=== PATIENT | male | born 1990 | race Caucasian/White ===

== ENCOUNTER 2016-10-28 12:48 | Emergency (ER) | payer SELFPAY ==
[~2016-10-28 12:48] MED LIST: DERMACORT1 GM EXT; MEDROL DOSEPAK4 MG PO; MOBIC PO; ROBAXIN500 MG PO
[2016-10-30] MEDS ORDERED: BACTRIM DS TABL1 TA2 PO (11:45)
[2016-10-30] MEDS ORDERED: MOTRIN600 M1 PO (11:46)
== END 2016-10-28 12:50 | disposition home or self-care (01) ==
LOC: SED 12:48
DX: L03.114 Cellulitis of left upper limb (principal); F17.210 Nicotine dependence, cigarettes, uncomplicated
CPT/HCPCS: 99282

== ENCOUNTER 2016-10-30 11:57 | Emergency (ER) | payer SELFPAY ==
[~2016-10-30 11:57] MED LIST changes: +BACTRIM DS TABL1 TA2 PO; +MOTRIN600 M1 PO
== END 2016-10-30 12:17 | disposition home or self-care (01) ==
LOC: SED 11:57
DX: L03.114 Cellulitis of left upper limb (principal); F17.200 Nicotine dependence, unspecified, uncomplicated; Z79.899 Other long term (current) drug therapy
CPT/HCPCS: 99282

== ENCOUNTER 2016-10-31 10:53 | Emergency (ER) | payer SELFPAY | END 2016-10-31 12:10 | disposition home or self-care (01) | LOC: SED 10:53 | DX: L03.113 Cellulitis of right upper limb (principal); F17.210 Nicotine dependence, cigarettes, uncomplicated; Z79.899 Other long term (current) drug therapy | CPT/HCPCS: 96372; 99283; J1885 ==

== ENCOUNTER 2016-11-02 16:37 | Emergency (ER) | payer SELFPAY ==
--- NOTE | ~2016-11-02 | CR93 ---
[facility]. [facility] A Service of [facility] & [facility] RADIOLOGY TEXT RESULTS PATIENT: THANG MEAD LOCATION: SED : [birth year] UNIT #: [id number] AGE: [address]: ARNOLD PRIETO SEX: M ORDER DR: [id number] [place] [id number] E MR#: [id number] Acc #: [id number] NAME: THANG MEAD : 1990 SEX: M STUDY DATE/TIME: 11/02/2016 17:45 UNIT: SED ROOM: STUDY DESCRIPTION: CR Elbow Min 3 Views Lt Attending Physician: Arnold Prieto Ordering Physician: Staff Doctor Not On Primary Care Physician: No Primary Care Physician MEDICAL IMAGING REPORT This report is preliminary unless electronic signature is present. EXAM Left elbow 3 views HISTORY 26-year-old male elbow infection with drainage swelling and pain for 7 days. FINDINGS 3 views of the left elbow demonstrate no fracture dislocation. Soft tissue swelling noted along the posterior elbow but no soft tissue gas or radiopaque foreign body. No periostitis. IMPRESSION Soft tissue swelling along the posterior elbow. No radiopaque foreign body. No underlying osseous abnormality. Dictated by... Lila Gamble M.D. THIS IS AN ELECTRONICALLY VERIFIED REPORT Lila Gamble M.D. at 11/03/2016 8:09 PM OTIS/daniel TD: 11/03/2016 02:21 JOB #: [id number] MEDICAL IMAGING REPORT Page 1 of 1
[2016-11-02 17:05] LABS: BASOPHIL% 0.3 % (0-2.5); DIFF IND NO; EOSINOPHIL# 0.1 X10e3 (0-0.7); EOSINOPHIL% 1.4 % (0.0-7.0); HEMATOCRIT 41.7 % (38.0-50.0); HEMOGLOBIN 13.7 gm/dL (13.0-16.0); LYMPHOCYTE# 0.9 X10e3 (1.0-3.5); LYMPHOCYTE% 10.5 % (17.0-45.0); MEAN CELL VOLUME 91.7 FL (83-96); MEAN CORPUSCULAR HEMOGLOBIN 30.1 PG (28-34); MEAN CORPUSCULAR HGB CONC 32.8 g/dL (30-36); MEAN PLATELET VOLUME 8.1 FL (6.5-11.5); MONOCYTE# 1.1 X10e3 (0-1.0); MONOCYTE% 12.7 % (3.0-12.0); NEUTROPHIL# 6.3 X10e3 (1.5-7.1); NEUTROPHIL% 75.1 % (40-75); PLATELET COUNT 202 X10e3 (140-420); RED BLOOD COUNT 4.54 X10e (3.90-5.60); RED CELL DISTRIBUTION WIDTH 13.5 % (11.0-15.5); WHITE BLOOD COUNT 8.4 X10e3 (4.0-10.5)
[2016-11-02 17:05] LABS: URINE APPEARANCE CLEAR; URINE BILIRUBIN NEG (NEG); URINE COLOR YELLOW; URINE GLUCOSE NEG (NORM); URINE KETONE NEG (NEG); URINE LEUKOCYTE ESTERASE NEG (NEG); URINE NITRATE NEG (NEG); URINE PROTEIN NEG (NEG); URINE SOURCE CLEAN CATCH; URINE SPECIFIC GRAVITY <=1.005 (1.003-1.035); URINE UROBILINOGEN 0.2 MG/DL (NORM)
[2016-11-02 17:06] LABS: MICRO INDICATED? NO; URINE BLOOD NEG (NEG)
[2016-11-02 17:37] LABS: BUN/CREATININE RATIO 11.87; CALCIUM SERUM 9.2 mg/dL (8.4-10.2); CREATININE SERUM 1.6 mg/dL (0.6-1.4); POTASSIUM 4.3 mmol/L (3.5-5.1)
== END 2016-11-02 19:04 | disposition home or self-care (01) ==
LOC: SED 16:37
PROVIDERS: Physician Assistant
DX: L03.114 Cellulitis of left upper limb (principal); F17.210 Nicotine dependence, cigarettes, uncomplicated; R11.2 Nausea with vomiting, unspecified; R10.13 Epigastric pain; Z91.14 Patient's other noncompliance with medication regimen; Z98.890 Other specified postprocedural states
CPT/HCPCS: 36415; 73080; 80048; 81003; 85025; 96365; 96375; 99284; J1885; J2405

== ENCOUNTER 2017-01-11 11:58 | Emergency (ER) | payer SELFPAY ==
[2017-01-11] MEDS ORDERED: NO MEDICATIONS (12:01)
== END 2017-01-11 13:31 | disposition home or self-care (01) ==
LOC: SED 11:58
DX: J01.90 Acute sinusitis, unspecified (principal); J02.9 Acute pharyngitis, unspecified; F17.210 Nicotine dependence, cigarettes, uncomplicated; Z98.890 Other specified postprocedural states
CPT/HCPCS: 87651; 99282

== ENCOUNTER 2017-03-19 16:28 | Emergency (ER) | payer SELFPAY ==
[~2017-03-19 16:28] MED LIST changes: +NO MEDICATIONS
== END 2017-03-19 17:36 | disposition home or self-care (01) ==
LOC: SED 16:28
DX: S61.211A Laceration without foreign body of left index finger without damage to nail, initial encounter (principal); F17.210 Nicotine dependence, cigarettes, uncomplicated; W45.8XXA Other foreign body or object entering through skin, initial encounter; Y92.009 Unspecified place in unspecified non-institutional (private) residence as the place of occurrence of the external cause
CPT/HCPCS: 99283